=== PATIENT | male | born 1955 | race Caucasian/White ===

== ENCOUNTER 2018-09-26 22:37 | Inpatient (IN) | payer OTHER ==
[2018-09-26 23:15] LABS: Absolute Monocytes 0.6 K/uL (0.1-1.3); Absolute Neutrophil 6.3 K/uL (1.8-8.0); Basophils % 0.6 % (0-1.3); Eosinophils % 1.2 % (0-4.4); Hematocrit 34.3 % (39.6-49.0); Lymphocytes % 11.9 % (15.3-44.8); MPV 10.4 fL (7.6-11.3); Monocytes % 7.8 % (3.3-12.3); RBC Red Blood Cell Count 3.19 M/uL (4.33-5.43)
[2018-09-26 23:16] LABS: Protime INR 0.96
[2018-09-26] MEDS ORDERED: NA CHLORIDE 0.9% 1,000 ML ONE (23:20)
[2018-09-26 23:58] LABS: ALT/SGPT 21 U/L (12-78); AST/SGOT 20 U/L (15-37); Albumin 3.7 g/dL (3.4-5.0); Alkaline Phosphatase 84 U/L (45-117); BUN Blood Urea Nitrogen 58 mg/dL (7-18); Bilirubin Direct 0.2 mg/dL (0-0.2); Bilirubin Total 0.4 mg/dL (0.2-1.0); Glucose Level 112 mg/dL (74-106); Magnesium 2.2 mg/dL (1.8-2.4); NT PRO-BNP 153 pg/mL (<125); Potassium 3.1 mmol/L (3.5-5.1); Protein, Total 7.3 g/dL (6.4-8.2); Sodium Level 136 mmol/L (136-145); Troponin (Emerg Dept Use Only) < 0.02 ng/mL (0.0-0.045)
[2018-09-26 23:59] LABS: Bicarbonate 11 mmol/L (21-32)
[2018-09-27 00:32] LABS: Blood Morphology Comment NOTED (NOT SEEN); Macrocytosis 2+; Platelet Estimate ADEQ; Urine White Blood Cell Casts OK
--- NOTE | 2018-09-27 01:02 | ER ---
Nurse's Notes [facility] Name: Bishop Cat Age: 63 yrs Sex: Male : 1955 Arrival Date: 09/26/2018 Time: 22:39 Bed 4 Private MD: Diagnosis: Hypotension;Acute kidney failure;Dehydration Presentation: 09/26 22:39 Presenting complaint: EMS states: that they were toned for pt having hypotension. fc told them that pt has fallen multiple times today and had been dizzy. Also that pt has used pot today. Transition of care: patient was not received from another setting of care. Onset of symptoms was September 26, 2018. Risk Assessment: Do you want to hurt yourself or someone else? Patient reports no desire to harm self or others. Initial Sepsis Screen: Does the patient meet any 2 criteria? No. Patient's initial sepsis screen is negative. Does the patient have a suspected source of infection? No. Patient's initial sepsis screen is negative. Care prior to arrival: Medication(s) given: Normal saline infusion, 100 ml IV initiated. 22 GA, in the right antecubital area. 22:39 Method Of Arrival: EMS: [facility] 22:39 Acuity: PAOLA 2 fc Historical: - Allergies: 22:53 No Known Allergies; fc - Home Meds: 22:53 allopurinol 100 mg Oral tab 1 tab once daily [Active]; allopurinol 300 mg Oral tab 1 fc tab once daily [Active]; sertraline 50 mg oral tab 1 tab once daily [Active]; levothyroxine 75 mcg tab 1 tab once daily [Active]; fenofibrate oral 145 mg oral 1 cap once daily [Active]; B-Complex oral tab daily [Active]; Vitamin D 2000 units Oral daily [Active]; pantoprazole 40 mg oral TbEC 1 tab once daily [Active]; amlodipine-benazepril 10-20 mg oral cap 1 cap once daily [Active]; - PMHx: 22:53 Hypertension; Panic Attacks; Gout; Hyperlipidemia; Hypothyroidism; Depression; fc - PSHx: 22:53 right thumb surg; fc - Immunization history:: Last tetanus immunization: up to date Flu vaccine is up to date. - Social history:: Smoking status: Patient/guardian denies using tobacco, Patient uses alcohol, on a daily basis. street drugs, marijuana. - Ebola Screening: : Patient negative for fever greater than or equal to 101.5 degrees Fahrenheit, and additional compatible Ebola Virus Disease symptoms Patient denies exposure to infectious person Patient denies travel to an Ebola-affected area in the 21 days before illness onset. Screenin:39 Abuse screen: Denies threats or abuse. Nutritional screening: No deficits noted. fc Tuberculosis screening: No symptoms or risk factors identified. Fall Risk None identified. Assessment: 22:30 General: Appears in no apparent distress. comfortable, Behavior is calm, cooperative, tl2 appropriate for age. Pain: Denies pain. Neuro: Reports dizziness, frequent falls. Neuro: No deficits noted. Level of Consciousness is awake, alert, obeys commands, Oriented to person, place, time, situation. Cardiovascular: Denies chest pain, shortness of breath. Respiratory: Airway is patent Respiratory effort is even, unlabored, Respiratory pattern is regular, symmetrical. GI: Reports vomiting. Derm: Skin is pale. 23:38 Reassessment: Patient appears in no apparent distress at this time. Patient and/or tl2 family updated on plan of care and expected duration. Pain level reassessed. Patient is alert, oriented x 3, equal unlabored respirations, skin warm/dry/pink. 09/27 00:39 Reassessment: Patient and/or family updated on plan of care and expected duration. Pain ea level reassessed. Patient is alert, oriented x 3, equal unlabored respirations, skin warm/dry/pink. 00:41 Reassessment: Patient appears in no apparent distress at this time. Patient and/or tl2 family updated on plan of care and expected duration. Pain level reassessed. Patient is alert, oriented x 3, equal unlabored respirations, skin warm/dry/pink. 01:35 Reassessment: Patient and/or family updated on plan of care and expected duration. Pain ea level reassessed. Pt resting with eyes closed, respirations even and unlabored. Chest expansions even and symmetrical. 01:58 Reassessment: Report called to Mattie RICE on second floor. ea 02:33 Reassessment: Patient and/or family updated on plan of care and expected duration. Pain ea level reassessed. Patient is alert, oriented x 3, equal unlabored respirations, skin warm/dry/pink. Pt admitted to second floor, pt left the ED via wheelchair per tech, pt tolerating well. Vital Signs: 09/26 22:39 BP 90 / 53; Pulse 81; Resp 18; Temp 97.5(O); Pulse Ox 100% on R/A; Weight 63.5 kg (R); fc Height 5 ft. 6 in. (167.64 cm) (R); Pain 0/10; 23:09 BP 95 / 45 LA Supine; Pulse 72; ea 23:10 BP 91 / 45; Pulse 75; ea 23:11 BP 73 / 34 Standing; Pulse 89; ea 23:32 BP 98 / 54; Pulse 71; Resp 18; Pulse Ox 100% on R/A; tl2 09/27 00:40 BP 100 / 56; Pulse 71; Resp 18; Pulse Ox 100% on R/A; tl2 01:35 BP 95 / 44; Pulse 71; Resp 18; Pulse Ox 100% on R/A; tl2 02:15 BP 94 / 50; Pulse 72; Resp 18; Pulse Ox 99% on R/A; ea 09/26 22:39 Body Mass Index 22.60 (63.50 kg, 167.64 cm) ED Course: 09/26 22:39 Patient arrived in ED. ds1 22:39 Arm band placed on Patient placed in an exam room, on a stretcher. fc 22:39 Patient has correct armband on for positive identification. Bed in low position. Call fc light in reach. Side rails up X2. alarm security or surveillance monitor on. Pulse ox on. NIBP on. 22:39 No provider procedures requiring assistance completed. Maintain EMS IV. Dressing fc intact. Good blood return noted. Site clean \T\ dry. Gauge \T\ site: 22 gauge to right a/c. 22:46 Yevgeniy Temple NP is PHCP. pm1 22:46 Pako Carmona MD is Attending Physician. pm1 22:46 Triage completed. fc 22:57 Barby Villalobos, KRYSTAL is Primary Nurse. tl2 23:09 XRAY Chest (1 view) In Process Unspecified. EDMS 09/27 01:01 Kiki Fernandez MD is Hospitalizing Provider. pm1 01:37 Patient admitted, IV remains in place. ea Administered Medications: 09/26 23:31 Drug: NS 0.9% 1000 ml Route: IV; Rate: 1000 ml; Site: right antecubital; tl2 09/27 01:44 Follow up: Response: No adverse reaction; IV Status: Completed infusion; IV Intake: ea 1000ml 00:18 CANCELLED (Physician Discretion): Potassium Effervescent Tablet 50 mEq PO once; pm1 dissolve in 4 ounces of water or juice 01:42 Drug: NS 0.9% 1000 ml Route: IV; Rate: 100 ml/hr; Site: right forearm; ea 01:43 Follow up: Response: No adverse reaction; IV Status: Completed infusion; IV Intake: ea 1000ml Intake: 01:43 IV: 1000ml; Total: 1000ml. ea 01:44 IV: 1000ml; Total: 2000ml. ea Outcome: 01:02 Decision to Hospitalize by Provider. pm1 01:36 Condition: stable ea 01:36 Instructed on the need for admit. 01:59 Admitted to Med/surg accompanied by tech, via stretcher, room 207, with chart, Report ea called to Mattie RICE 02:35 Patient left the ED. ea Signatures: Dispatcher [employer] EDKY Ashley Gutierrez RN Betty Scott ds1 Yevgeniy Temple NP [employer] pm1 Barby Villalobos RN RN tl2 Elaina Moore RN RN ea Corrections: (The following items were deleted from the chart) 09/26 23:37 23:30 General: Appears in no apparent distress. comfortable, Behavior is calm, tl2 cooperative, appropriate for age, tl2 23:37 23:30 Pain: Denies pain. tl2 tl2 23:37 23:30 Neuro: No deficits noted. Level of Consciousness is awake, alert, obeys commands, tl2 Oriented to person, place, time, situation, tl2 23:37 23:30 Cardiovascular: Denies chest pain, shortness of breath, tl2 tl2 23:37 23:30 Respiratory: Airway is patent Respiratory effort is even, unlabored, Respiratory tl2 pattern is regular, symmetrical, tl2 23:37 23:30 GI: Reports vomiting, tl2 tl2 23:37 23:30 Derm: Skin is pale, tl2 tl2 23:37 23:30 Neuro: Reports dizziness, frequent falls. tl2 tl2
--- NOTE | 2018-09-27 01:03 | EDPHYS ---
Physician Documentation [facility] Name: Bishop Cat Age: 63 yrs Sex: Male : 1955 Arrival Date: 09/26/2018 Time: 22:39 Bed 4 Private MD: ED Physician Pako Carmona HPI: 09/27 00:00 This 63 yrs old Male presents to ER via EMS with complaints of hypotension. pm1 00:00 Hypotension. Onset: The symptoms/episode began/occurred today. Severity of symptoms: in pm1 the emergency department the symptoms are unchanged. The patient has experienced a previous episode, many years ago, electrolyte issues and positive for H. pylori. The patient has not recently seen a physician, the patient's primary care provider is Dr. Torres, has an appointment scheduled. Patient presenting to the ER today with complaints of hypotension. Patient with complaints of dizziness and falls today. He has not been eating well. His checked his blood pressure and it was low. Systolic in the 70's. Daughter reports that the last time that he felt this way it was a result of h. pylori and he was not eating well. His electrolytes were off. He got treated for h. pylori and his appetite improved.. Historical: - Allergies: 09/26 22:53 No Known Allergies; fc - Home Meds: 22:53 allopurinol 100 mg Oral tab 1 tab once daily [Active]; allopurinol 300 mg Oral tab 1 fc tab once daily [Active]; sertraline 50 mg oral tab 1 tab once daily [Active]; levothyroxine 75 mcg tab 1 tab once daily [Active]; fenofibrate oral 145 mg oral 1 cap once daily [Active]; B-Complex oral tab daily [Active]; Vitamin D 2000 units Oral daily [Active]; pantoprazole 40 mg oral TbEC 1 tab once daily [Active]; amlodipine-benazepril 10-20 mg oral cap 1 cap once daily [Active]; - PMHx: 22:53 Hypertension; Panic Attacks; Gout; Hyperlipidemia; Hypothyroidism; Depression; fc - PSHx: 22:53 right thumb surg; fc - Immunization history:: Last tetanus immunization: up to date Flu vaccine is up to date. - Social history:: Smoking status: Patient/guardian denies using tobacco, Patient uses alcohol, on a daily basis. street drugs, marijuana. - Ebola Screening: : Patient negative for fever greater than or equal to 101.5 degrees Fahrenheit, and additional compatible Ebola Virus Disease symptoms Patient denies exposure to infectious person Patient denies travel to an Ebola-affected area in the 21 days before illness onset. ROS: 09/27 00:00 Constitutional: Negative for fever, chills, and weight loss, Eyes: Negative for injury, pm1 pain, redness, and discharge, ENT: Negative for injury, pain, and discharge, Neck: Negative for injury, pain, and swelling, Cardiovascular: Negative for chest pain, palpitations, and edema, Respiratory: Negative for shortness of breath, cough, wheezing, and pleuritic chest pain, Back: Negative for injury and pain. : Negative for injury, bleeding, discharge, and swelling, MS/Extremity: Negative for injury and deformity, Skin: Negative for injury, rash, and discoloration. Abdomen/GI: Positive for diarrhea, Negative for abdominal pain, nausea, vomiting. Neuro: Positive for dizziness, Negative for numbness, tingling, focal weakness. Exam: 00:00 Head/Face: Normocephalic, atraumatic. Eyes: Pupils equal round and reactive to light, pm1 extra-ocular motions intact. Lids and lashes normal. Conjunctiva and sclera are non-icteric and not injected. Cornea within normal limits. Periorbital areas with no swelling, redness, or edema. ENT: Nares patent. No nasal discharge, no septal abnormalities noted. Tympanic membranes are normal and external auditory canals are clear. Oropharynx with no redness, swelling, or masses, exudates, or evidence of obstruction, uvula midline. Mucous membranes moist. Neck: Trachea midline, no thyromegaly or masses palpated, and no cervical lymphadenopathy. Supple, full range of motion without nuchal rigidity, or vertebral point tenderness. No Meningismus. Chest/axilla: Normal chest wall appearance and motion. Nontender with no deformity. No lesions are appreciated. Cardiovascular: Regular rate and rhythm with a normal S1 and S2. No gallops, murmurs, or rubs. Normal PMI, no JVD. No pulse deficits. Respiratory: Lungs have equal breath sounds bilaterally, clear to auscultation and percussion. No rales, rhonchi or wheezes noted. No increased work of breathing, no retractions or nasal flaring. Abdomen/GI: Soft, non-tender, with normal bowel sounds. No distension or tympany. No guarding or rebound. No evidence of tenderness throughout. Back: No spinal tenderness. No costovertebral tenderness. Full range of motion. Skin: Warm, dry with normal turgor. Normal color with no rashes, no lesions, and no evidence of cellulitis. MS/ Extremity: Pulses equal, no cyanosis. Neurovascular intact. Full, normal range of motion. 00:00 Constitutional: The patient appears in no acute distress, alert, awake, comfortable, non-diaphoretic, non-toxic, frail. 00:00 Neuro: Orientation: is normal, Motor: is normal, moves all fours, strength is 5/5 in all extremities, Sensation: is normal, no obvious gross deficits. Vital Signs: 09/26 22:39 BP 90 / 53; Pulse 81; Resp 18; Temp 97.5(O); Pulse Ox 100% on R/A; Weight 63.5 kg (R); fc Height 5 ft. 6 in. (167.64 cm) (R); Pain 0/10; 23:09 BP 95 / 45 LA Supine; Pulse 72; ea 23:10 BP 91 / 45; Pulse 75; ea 23:11 BP 73 / 34 Standing; Pulse 89; ea 23:32 BP 98 / 54; Pulse 71; Resp 18; Pulse Ox 100% on R/A; tl2 09/27 00:40 BP 100 / 56; Pulse 71; Resp 18; Pulse Ox 100% on R/A; tl2 01:35 BP 95 / 44; Pulse 71; Resp 18; Pulse Ox 100% on R/A; tl2 02:15 BP 94 / 50; Pulse 72; Resp 18; Pulse Ox 99% on R/A; ea 09/26 22:39 Body Mass Index 22.60 (63.50 kg, 167.64 cm) fc MDM: 09/26 22:51 Patient medically screened. pm1 09/27 00:48 Data reviewed: vital signs. Data interpreted: Pulse oximetry: on room air is 100 %. pm1 Interpretation: normal. 00:55 Counseling: I had a detailed discussion with the patient and/or guardian regarding: the pm1 historical points, exam findings, and any diagnostic results supporting the discharge/admit diagnosis, lab results, radiology results, the need for further work-up and treatment in the hospital. 09/26 22:52 Order name: Basic Metabolic Panel; Complete Time: 00:02 pm09/26 22:52 Order name: CBC with Diff; Complete Time: 00:53 pm09/26 22:52 Order name: LFT's; Complete Time: 00:02 pm09/26 22:52 Order name: Magnesium; Complete Time: 00:02 pm09/26 22:52 Order name: NT PRO-BNP; Complete Time: 00:02 pm09/26 22:52 Order name: PT-INR; Complete Time: 23:46 pm1 09/26 22:52 Order name: Troponin (emerg Dept Use Only); Complete Time: 00:02 pm09/26 23:40 Order name: CBC Smear Scan; Complete Time: 00:53 EDMS 09/26 23:43 Order name: UDS tl2 09/27 00:43 Order name: Alcohol Serum/Plasma; Complete Time: 01:39 EDMS 09/27 01:22 Order name: CBC with Automated Diff EDMS 09/27 01:22 Order name: CBC with Automated Diff EDMS 09/27 01:22 Order name: Comprehensive Metabolic Panel EDMS 09/27 01:22 Order name: Comprehensive Metabolic Panel EDMS 09/26 22:52 Order name: XRAY Chest (1 view) pm09/26 22:52 Order name: EKG; Complete Time: 22:53 pm09/26 22:52 Order name: Cardiac monitoring; Complete Time: 22:57 pm09/26 22:52 Order name: EKG - Nurse/Tech; Complete Time: 22:57 pm09/26 22:52 Order name: IV Saline Lock; Complete Time: 22:58 pm09/26 22:52 Order name: Labs collected and sent; Complete Time: 22:58 pm09/27 01:22 Order name: CONS Pharmacy Consult EDMS 09/27 01:22 Order name: CONS Physician Consult EDMS 09/27 01:22 Order name: Renal EDMS 09/27 01:22 Order name: Basic Metabolic Panel EDMS 09/27 01:22 Order name: CBC with Automated Diff EDMS 09/27 02:03 Order name: Urine Dipstick--Ancillary (enter results) mw2 09/27 02:11 Order name: Urine Dipstick-Ancillary; Complete Time: 02:14 EDMS 09/26 22:52 Order name: O2 Per Protocol; Complete Time: 22:58 pm1 09/26 22:52 Order name: O2 Sat Monitoring; Complete Time: 22:58 pm1 09/26 22:52 Order name: Orthostatics; Complete Time: 23:31 pm1 09/26 22:52 Order name: Urine Dipstick-Ancillary (obtain specimen); Complete Time: 01:58 pm1 Administered Medications: 09/26 23:31 Drug: NS 0.9% 1000 ml Route: IV; Rate: 1000 ml; Site: right antecubital; tl2 09/27 01:44 Follow up: Response: No adverse reaction; IV Status: Completed infusion; IV Intake: ea 1000ml 00:18 CANCELLED (Physician Discretion): Potassium Effervescent Tablet 50 mEq PO once; pm1 dissolve in 4 ounces of water or juice 01:42 Drug: NS 0.9% 1000 ml Route: IV; Rate: 100 ml/hr; Site: right forearm; ea 01:43 Follow up: Response: No adverse reaction; IV Status: Completed infusion; IV Intake: ea 1000ml Disposition: 05:42 Co-signature as Attending Physician, Pako Carmona MD I agree with the assessment and tw4 plan of care. Disposition: 09/27/18 01:02 Hospitalization ordered by Kiki Fernandez for Inpatient Admission. Preliminary diagnosis are Hypotension, Acute kidney failure, Dehydration. - Bed requested for Telemetry/MedSurg (Inpatient). - Status is Inpatient Admission. ea - Condition is Stable. - Problem is new. - Symptoms have improved. UTI on Admission? No Signatures: Dispatcher [employer] EDMS Ashley Gutierrez RN RN fc Garcia, Cindy, RN RN cg Marinas, Patrick, NP [employer] pm1 Barby Villalobos RN RN tl2 Elaina Moore RN RN ea Wadley, Terrence, MD MD tw4 Corrections: (The following items were deleted from the chart) 00:18 00:18 Potassium Effervescent Tablet 50 mEq PO once; dissolve in 4 ounces of water or pm1 juice ordered. pm1 01:33 01:02 Hospitalization Ordered by Kiki Fernandez MD for Inpatient Admission. Preliminary cg diagnosis is Hypotension; Acute kidney failure; Dehydration. Bed requested for Telemetry/MedSurg (Inpatient). Status is Inpatient Admission. Condition is Stable. Problem is new. Symptoms have improved. UTI on Admission? No. pm1 02:35 01:33 09/27/2018 01:02 Hospitalization Ordered by Kiki Fernandez MD for Inpatient ea Admission. Preliminary diagnosis is Hypotension; Acute kidney failure; Dehydration. Bed requested for Telemetry/MedSurg (Inpatient). Status is Inpatient Admission. Condition is Stable. Problem is new. Symptoms have improved. UTI on Admission? No. cg
[2018-09-27] MEDS ORDERED: ACETAMINOPHEN 500 MG TAB PO PRN (01:18)
[2018-09-27] MEDS ORDERED: ONDANSETRON 4 MG/2 ML VIAL IV PRN (01:18)
[2018-09-27] MEDS ORDERED: MORPHINE 2 MG/ML SYR IV PRN (01:18)
[2018-09-27] MEDS: D5W 1,000 ML with NA BICARB 8.4% 100 MEQ IV SCH ×4 (02:00→17:31)
[2018-09-27 02:10] LABS: Urine Blood NEGATIVE (NEG); Urine Glucose NEGATIVE (NEG); Urine Protein 2+ (NEG); Urine Specific Gravity 1.025 (1.005-1.030)
[2018-09-27] MEDS ORDERED: POTASSIUM 25 MEQ EFFERV TAB PO ONE (02:11)
[2018-09-27 02:21] LABS: Barbiturates NEGATIVE (NEGATIVE); Benzodiazepines POSITIVE (NEGATIVE); Cocaine NEGATIVE (NEGATIVE); METHAMPHETAM NEGATIVE (NEGATIVE); Methadone NEGATIVE (NEGATIVE); Opiates NEGATIVE (NEGATIVE); Phencyclidine NEGATIVE (NEGATIVE); THC Cannibis NEGATIVE (NEGATIVE)
[2018-09-27] MEDS ORDERED: D5W 1,000 ML IV ONE (02:40)
[2018-09-27] MEDS ORDERED: SODIUM BICARB 50 MEQ/50ML VIAL ONE (02:40)
[2018-09-27 03:18] VITALS: BMI 21.3
[2018-09-27 06:05] LABS: Absolute Lymphocytes (CBC) 1.2 K/uL (0.7-4.9); Absolute Monocytes 0.6 K/uL (0.1-1.3); Absolute Neutrophil 4.1 K/uL (1.8-8.0); Basophils % 0.8 % (0-1.3); Eosinophils % 2.8 % (0-4.4); MPV 10.3 fL (7.6-11.3); Monocytes % 10.1 % (3.3-12.3); RBC Red Blood Cell Count 2.59 M/uL (4.33-5.43)
[2018-09-27] MEDS ORDERED: MORPHINE 4 MG/ML SYR IV PRN (07:14)
--- NOTE | 2018-09-27 08:10 | RAD REPORT ---
EXAM DESCRIPTION: RAD - Chest Single View - 09/26/2018 11:11 pm CLINICAL HISTORY: hypotension Chest pain. COMPARISON: CHEST SINGLE VIEW dated 07/27/2015; CHEST PA AND LAT 2 VIEW dated 08/24/2014 FINDINGS: Portable technique limits examination quality. The lungs are grossly clear. The heart is normal in size. No displaced fractures. IMPRESSION: No acute intrathoracic process suspected.
--- NOTE | 2018-09-27 08:26 | RAD REPORT ---
EXAM DESCRIPTION: US - Renal Ultrasound-Complete - 09/27/2018 7:53 am CLINICAL HISTORY: MANUEL COMPARISON: No comparisons FINDINGS: Both kidneys are normal in size, shape and echotexture. The right kidney measures 8.8 x 4.3 x 4.2 cm. No hydronephrosis, focal mass or perinephric fluid. The left kidney measures 9.4 x 4.9 x 6.4 cm. No hydronephrosis, focal mass or perinephric fluid. The urinary bladder is incompletely distended without gross abnormality seen. Prostate gland appears mildly prominent. IMPRESSION: Unremarkable renal sonogram.
[2018-09-27] MEDS ORDERED: FENOFIBRATE 160 MG TAB PO SCH (09:00)
[2018-09-27] MEDS ORDERED: INFLUENZA VACCINE (for 3y+) 0.5 ML DOSE IMVAC ONE (09:00)
[2018-09-27] MEDS ORDERED: PNEUMOCOCCAL VACCINE 0.5 ML IMVAC ONE (09:00)
[2018-09-27] MEDS: ALLOPURINOL 100 MG TAB PO SCH (09:49)
[2018-09-27] MEDS: SERTRALINE HCL 50 MG TAB PO SCH (09:49)
[2018-09-27] MEDS: PANTOPRAZOLE 40MG TABLET PO SCH (09:49)
[2018-09-27 15:10] LABS: Urine Appearance CLEAR; Urine Bilirubin NEGATIVE (NEG); Urine Blood NEGATIVE (NEG); Urine Color YELLOW; Urine Glucose NEGATIVE (NEG); Urine Protein NEGATIVE (NEG); Urine Specific Gravity 1.015 (1.005-1.030); Urine Urobilinogen 0.2 mg/dL (0.2-1.0); Urine pH 5.5 (5.0-7.0)
[2018-09-27 15:26] LABS: Urine Microscopic Reflex NO UMIC
--- NOTE | 2018-09-27 17:10 | EKG ---
Test Date: 2018-09-26 Test Time: 22:44:36 Forming And Assembling Supervisor: OSVALDO MEASUREMENT RESULTS: Intervals: Rate: 76 KS: 202 QRSD: 88 QT: 412 QTc: 463 [place]: P: 55 KS: 202 QRS: 11 T: 34 INTERPRETIVE STATEMENTS: Normal sinus rhythm Normal ECG Compared to ECG 07/27/2015 12:01:33 Sinus bradycardia no longer present Electronically Signed On 09-27-18 17:07:15 PARKING LOT SUPERVISOR by Jose Sanches
[2018-09-27 20:15] LABS: Urine Protein/Creatinine Ratio 0.08 ratio (<0.15)
--- NOTE | 2018-09-28 02:31 | P.HP ---
Certification for Inpatient Patient admitted to: Inpatient With expected LOS: >2 Midnights Patient will require the following post-hospital care: None Practitioner: I am a practitioner with admitting privileges, knowledge of patient current condition, hospital course, and medical plan of care. Services: Services provided to patient in accordance with Admission requirements found in Title 42 Section 412.3 of the Code of Federal Regulations Patient History Date of Service: 09/27/18 Reason for admission: Acute renal insufficiency History of Present Illness: patient is a 63-year-old gentleman who came the hospital with acute renal insufficiency. Patient has had no appetite for the last few days. Patient's mentation has been diminished. Patient has not been acting like himself. He does not really give me much of a history except for the fact that he feels weak and has no appetite. He went to see his family doctor but the appointment was not scheduled for Wednesday. He came into the hospital for further evaluation since his symptoms were worsening. In the emergency room his workup revealed he had acute renal insufficiency. Patient's last labs were done in 2011. At that time his creatinine was normal. Currently his creatinine is significantly elevated. Patient will be admitted to the hospital for further workup. Allergies NKDA Allergy (Uncoded 09/27/18 02:58) Unknown Home Medications: Allopurinol 1 tab PO DAILY 09/27/18 Amlodipine Besylate/Benazepril [Amlodipine-Benazepril 10-20 mg] 1 cap PO DAILY 09/27/18 B Complex with Vitamin C [Vitamin B-Complex & C] 1 tab PO DAILY 09/27/18 Cholecalciferol (Vitamin D3) [Vitamin D 1000 Iu Tab*] 2,000 units PO DAILY 09/27 Fenofibrate [Tricor*] 1 tab PO DAILY 09/27/18 Levothyroxine Sodium 1 tab PO DAILY 09/27/18 Pantoprazole Sodium 1 tab PO DAILY 09/27/18 Sertraline HCl 1 tab PO DAILY 09/27/18 - Past Medical/Surgical History Has patient received pneumonia vaccine in the past: No Diabetic: No -: HTN -: Panic attacks -: Gout -: High cholesterol -: Hypothyroidism -: Depression -: right hand sx - Family History Mother Medical History: Lung disease Father Medical History: Stroke - Social History Smoking Status: Never smoker Alcohol use: Yes CD- Drugs: Yes Caffeine use: Yes Place of Residence: Home Review of Systems 10-point ROS is otherwise unremarkable Physical Examination - Vital Signs Temperature: 98.6 F Blood Pressure: 100/60 Pulse: 90 Respirations: 16 Pulse Ox (%): 98 - Physical Exam General: Alert, In no apparent distress, Oriented x2, Other ( Confused) HEENT: Atraumatic, PERRLA, Mucous membr. moist/pink, EOMI, Sclerae nonicteric Neck: Supple, 2+ carotid pulse no bruit, No LAD, Without JVD or thyroid abnormality Respiratory: Clear to auscultation bilaterally, Normal air movement Cardiovascular: Regular rate/rhythm, Normal S1 S2, No murmurs Gastrointestinal: Normal bowel sounds, Soft and benign, Non-distended, No tenderness Musculoskeletal: No clubbing, No swelling, No tenderness Integumentary: No rashes Neurological: Normal gait, Normal speech, Normal strength at 5/5 x4 extr, Normal tone, Sensation intact, Cranial nerves 3-12 intact, Normal affect Lymphatics: No axilla or inguinal lymphadenopathy Assessment & Plan - Problems (Diagnosis) (1) Acute renal insufficiency Current Visit: Yes Status: Acute (2) Anorexia Current Visit: Yes Status: Acute (3) Uremic encephalopathy Current Visit: Yes Status: Acute (4) Metabolic acidosis Current Visit: Yes Status: Acute - Plan Plan: 1. IV hydration with bicarb drip 2. Nephrology consultation 3. Renal ultrasound 4. echocardiogram 5. UA with microscopy 6. monitor renal function closely along with patient's acidemia 7. GI and DVT prophylaxis Discharge Plan: Home Plan to discharge in: Greater than 2 days - Advance Directives Does patient have a Living Will: Yes Does patient have a Durable POA for Healthcare: Yes - Code Status/Comfort Care Code Status Assessed: Yes Code Status: Full Code Critical Care: No Time Spent Managing PTS Care (In Minutes): 54
--- NOTE | 2018-09-28 03:02 | CON ---
Date of Consultation: 09/27/2018 Reason For Consultation: Elevated BUN and creatinine, fluid management. History Of Present Illness: This is a 63-year-old gentleman with significant past medical history of gout, hyperlipidemia, depression. The patient was in his regular state of health, came to the [facility] complaining of dizziness, found to have low blood pressure down to the 70s. The patient denied a ny nausea, but he has poor intake. The patient apparently has been on DARRIN inhibitor with hydrochloro thiazide. The patient had recurrent falls lately. No fever. No chills. The patient continued to c omplain of dizziness. Over the night, the patient started on hydration, started feeling well, but bl ood pressure is still low. Primary workup showed elevated BUN and creatinine, creatinine 3.6. GFR o f 18. For that reason, we have been consulted. The patient as I mentioned has been on DARRIN inhibitor , taking allopurinol for his gout. Denied taking any nonsteroidal. Denied recent change in his medi cation. The patient has nocturia. No hematuria. Primary workup shows some anemia. Past Medical History: Includes: 1.Hyperlipidemia. 2.Hypertension. 3.Gout. Past Surgical History: Includes right thumb surgery. Social History: Denied smoking. Denied drinking. Denied drug abuse. Family History: Positive for hypertension. Review of Systems: Head and Neck: No red eye. No ear pain. GI: No vomiting. Has nausea. GASATERIA ATTENDANT: Not applicable. Respiratory: No shortness of breath. Cardiovascular: No chest pain. Endocrine: No polydipsia. Neuro: Has recurrent falls. Musculoskeletal: Has low back pain. Endocrine: No polydipsia. Skin: No rash. Physical Examination: Vital Signs: When I saw the patient, the patient is lying in bed, comfortable, not in any distress. Blood pressure 94/50, pulse of 85, afebrile. Chest: Clear to auscultation. Heart: S1, S2. Systolic murmur. Abdomen: Soft, nontender. Extremities: No edema. Laboratory Data: WBC 6.2, H and H 9.1/27, platelets 204. Sodium 137, potassium 4, bicarb 18, BUN 64 , creatinine 3.6. Assessment And Plan: 1.Acute kidney injury secondary to prerenal secondary to poor perfusion, acute tubular necrosis, sup erimposed with DARRIN inhibitor use. Given the blood pressure is still low, I am going to bolus the pat ient with 500, then maintain the patient on 150. We will hold all blood pressure medications especia lly DARRIN inhibitor and diuresis. We will send for renal ultrasound given the history of prostate canc er to rule out any obstructive uropathy, and we will monitor. 2.Hypertension. Given the acute kidney injury and the low blood pressure, hold all blood pressure m edications especially DARRIN inhibitor. 3.Gout. No activity. We will monitor. 4.Anemia with the presence of acute kidney injury. Light chain disease needs to be ruled out. We w ill send for anemia workup. We will send for SPEP. 5.Non-anion gap metabolic acidosis secondary to renal failure. I do not see the need for any bicarb for the time being, possible it is secondary to IV fluids/secondary to renal failure as renal tubul ar acidosis. We will continue with the hydration. We will monitor the patient. Thank you, Dr. Rios, for allowing us to participate in the care of your patient. KARENA Voice ID: [id number] Report ID: [id number]
[2018-09-28] MEDS: LEVOTHYROXINE SOD 0.075 MG TAB PO SCH (05:15)
[2018-09-28 06:11] LABS: Absolute Lymphocytes (CBC) 0.9 K/uL (0.7-4.9); Absolute Monocytes 0.4 K/uL (0.1-1.3); Absolute Neutrophil 3.9 K/uL (1.8-8.0); Basophils % 0.3 % (0-1.3); Eosinophils % 3.1 % (0-4.4); Hematocrit 26.2 % (39.6-49.0); Lymphocytes % 16.5 % (15.3-44.8); MPV 10.2 fL (7.6-11.3); Monocytes % 7.2 % (3.3-12.3); RBC Red Blood Cell Count 2.52 M/uL (4.33-5.43)
[2018-09-28 06:41] LABS: Bilirubin Total 0.4 mg/dL (0.2-1.0); Ferritin 1122.9 ng/mL (26-388); Folic Acid, (Folate) 18.3 ng/mL (3.1-17.5); Phosphorus 3.6 mg/dL (2.5-4.9); Potassium 3.1 mmol/L (3.5-5.1); Thyroid Stimulating Hormone 0.359 uIU/mL (0.360-3.740)
[2018-09-28] MEDS: D5W 1,000 ML with NA BICARB 8.4% 100 MEQ IV SCH ×2 (07:20)
[2018-09-28] MEDS: PANTOPRAZOLE 40MG TABLET PO SCH (08:26)
[2018-09-28] MEDS: ALLOPURINOL 100 MG TAB PO SCH (08:26)
[2018-09-28] MEDS: SERTRALINE HCL 50 MG TAB PO SCH (08:26)
[2018-09-28] MEDS ORDERED: D5W 1,000 ML with NA BICARB 8.4% 100 MEQ IV SCH ×2 (10:15)
--- NOTE | 2018-09-28 14:53 | PN ---
Date of Progress Note: 09/28/2018 NEPHROLOGY FOLLOWUP Subjective: The patient is feeling much better. No nausea. No vomiting. Physical Examination: Vital Signs: Blood pressure 107/50, pulse of 78, afebrile. The patient had good urine output of 650 . Chest: Clear to auscultation. Heart: S1 and S2, regular. Abdomen: Soft, nontender. Extremities: No edema. Laboratory Data: WBC 5.3, H and H of 8.9 and 26.2, platelets of 180. Sodium 141, potassium 3.1, bic arb 21, BUN 63, creatinine down to 2.4, GFR of 17, calcium 8, phosphorus 3.6, TSAT of 9, ferritin 110 0, PTH 44, TSH 0.3. Renal ultrasound showing normal size kidney 8.8/9.4, with bladder distended, wit h prominent prostate. Current Medications: The patient on include D5 with bicarb, sertraline, Tylenol, Zofran, pantoprazol e, levothyroxine, allopurinol. Assessment And Plan: 1.Acute kidney injury secondary to prerenal, superimposed with DARRIN inhibitor, still improving. I am going to discontinue IV fluid and we will monitor the patient. 2.Acidosis secondary to renal failure, resolved. We will discontinue bicarb and we will monitor. 3.Hypertension, controlled, optimal, off blood pressure medication. We will keep holding blood pres sure medication for the time being, especially DARRIN inhibitor given the recent acute kidney injury. 4.Anemia, workup ruled out iron deficiency. We will follow up with the primary. 5.Acidosis secondary to renal failure as above, discontinue bicarb drip. No need for supplement. IZAIAH/NAHUN Voice ID: [id number] Report ID: [id number]
--- NOTE | 2018-09-28 15:21 | P.PN ---
Subjective Date of Service: 09/28/18 Chief Complaint: Acute renal insufficiency Subjective: No C/O voiced Patient seen and examined at bedside. No family at bedside. Chart reviewed and case discussed with nursing staff. Review of Systems 10-point ROS is otherwise unremarkable Physical Examination - Vital Signs Temperature: 98.2 F Blood Pressure: 102/55 Pulse: 79 Respirations: 20 Pulse Ox (%): 93 - Physical Exam General: Alert, In no apparent distress, Oriented x3 HEENT: Atraumatic, PERRLA, EOMI Neck: Supple, JVD not distended Respiratory: Clear to auscultation bilaterally, Normal air movement Cardiovascular: Regular rate/rhythm, Normal S1 S2 Gastrointestinal: Normal bowel sounds, No tenderness Musculoskeletal: No tenderness Integumentary: No rashes Neurological: Normal speech, Normal tone, Normal affect Lymphatics: No axilla or inguinal lymphadenopathy Assessment And Plan - Current Problems (Diagnosis) (1) Acute renal insufficiency Onset Date: 09/28/18 Current Visit: Yes Status: Acute (2) Metabolic acidosis Onset Date: 09/28/18 Current Visit: Yes Status: Acute (3) Anemia Current Visit: Yes Status: Acute Qualifiers: Anemia type: other cause Other causes of anemia: other cause, not classified Qualified Code(s): D64.89 - Other specified anemias (4) Hypertension Current Visit: Yes Status: Acute (5) Uremic encephalopathy Onset Date: 09/28/18 Current Visit: Yes Status: Acute (6) Alcohol abuse Current Visit: Yes Status: Acute - Plan This is a 63-year-old male with: Acute renal insufficiency (Acute 09/28/18) N28.9 Creatinine improving A fluids discontinued. Encourage oral hydration Nephrology consulted, recommendations appreciated Metabolic acidosis (Acute 09/28/18) E87.2. Resolved. Bicarbonate drip stopped Continue to monitor Anemia (Acute) D64.9 Macrocytic anemia, multifactorial (medication usage, alcoholic macrocytosis) No need for transfusion at this time. Continue to monitor Discussed alcohol cessation, patient not interested at this time Hypertension (Acute) I10 Blood pressure still on the lower and. Continue to hold blood pressure medications at this time Uremic encephalopathy (Acute 09/28/18) G93.41, N19 Resolved Alcohol abuse Discussed alcohol cessation, patient not interested at this time DVT prophylaxis: Lovenox GI prophylaxis: None Diet: Renal Disposition: Pending symptomatic improvement.
[2018-09-28] MEDS ORDERED: LORazepam 2 MG/ML VIAL IV PRN (17:54)
[2018-09-28] MEDS ORDERED: POTASSIUM 25 MEQ EFFERV TAB PO SCH (21:00)
[2018-09-29 03:00] VITALS: O2SAT 96
[2018-09-29] MEDS: LEVOTHYROXINE SOD 0.075 MG TAB PO SCH (05:50)
[2018-09-29 06:22] LABS: Absolute Lymphocytes (CBC) 1.1 K/uL (0.7-4.9); Absolute Monocytes 0.5 K/uL (0.1-1.3); Absolute Neutrophil 3.2 K/uL (1.8-8.0); Basophils % 0.8 % (0-1.3); Eosinophils % 3.8 % (0-4.4); Hematocrit 25.4 % (39.6-49.0); Lymphocytes % 22.5 % (15.3-44.8); MPV 10.5 fL (7.6-11.3); Monocytes % 10.2 % (3.3-12.3); RBC Red Blood Cell Count 2.45 M/uL (4.33-5.43)
[2018-09-29 06:43] LABS: Bilirubin Total 0.4 mg/dL (0.2-1.0); Phosphorus 2.8 mg/dL (2.5-4.9); Potassium 3.5 mmol/L (3.5-5.1)
[2018-09-29] MEDS: ALLOPURINOL 100 MG TAB PO SCH (08:23)
[2018-09-29] MEDS: PANTOPRAZOLE 40MG TABLET PO SCH (08:23)
[2018-09-29] MEDS: SERTRALINE HCL 50 MG TAB PO SCH (08:23)
[2018-09-29] MEDS ORDERED: POTASSIUM CL SA 10 MEQ TAB PO ONE (09:00)
[2018-09-29 09:50] VITALS: BP 95/46; TEMP 97.8
--- NOTE | 2018-09-29 13:45 | P.PN ---
Subjective Date of Service: 09/29/18 Chief Complaint: Acute renal insufficiency Subjective: Improving Cr improved to 1.5 good appetiate BP at the low side which is baseline for the pt cleared for discharge from nephrology point of view Physical Examination - Vital Signs Temperature: 97.8 F Blood Pressure: 95/46 Pulse: 72 Respirations: 17 Pulse Ox (%): 93 - Physical Exam General: In no apparent distress, Oriented x3 HEENT: Atraumatic Neck: Supple, Without JVD or thyroid abnormality Respiratory: Clear to auscultation bilaterally, Normal air movement Cardiovascular: Regular rate/rhythm, Normal S1 S2 Gastrointestinal: Normal bowel sounds, Soft and benign Assessment And Plan - Current Problems (Diagnosis) (1) Acute renal insufficiency Onset Date: 09/28/18 Current Visit: Yes Status: Acute - Plan Assessment And Plan: Acute kidney injury secondary to prerenal, Improving Acidosis resolved off bicarb Anemia high ferritn need thiamin and B12 supplement W/U as an Op
[2018-10-02 21:36] LABS: Albumin, (SPE) 3.1 g/dL (3.8-4.8); Alpha-1-Globulins 0.3 g/dL (0.2-0.3); Alpha-2-Globulins 0.6 g/dL (0.5-0.9); Gamma Globulins 0.6 g/dL (0.8-1.7); INTERPRETATION REPORT
== END 2018-09-29 14:39 | disposition home or self-care (01) | DRG 682 ==
LOC: ER 22:37 → ERHOLD 09-27 01:38 → 2ND 09-27 02:02
PROVIDERS: ADMIT Family Medicine; ATTEND Family Medicine
DX: N17.0 Acute kidney failure with tubular necrosis (principal); G93.41 Metabolic encephalopathy; E87.2 Acidosis; D64.89 Other specified anemias; I10 Essential (primary) hypertension; F10.10 Alcohol abuse, uncomplicated; M10.9 Gout, unspecified; E78.5 Hyperlipidemia, unspecified; F32.9 Major depressive disorder, single episode, unspecified; Z85.46 Personal history of malignant neoplasm of prostate
CPT/HCPCS: 36415; 71045; 76770; 80048; 80053; 80069; 80076; 80307; 80320; 81003; 82570; 82607; 82728; 82746; 83540; 83735; 83880; 83970; 84100; 84156; 84165; 84443; 84466; 84484; 85025; 85044; 85610; 93005; 96360; 96361; 99285; J7030